=== PATIENT | male | born 1990 | race Hispanic/Latino ===

== ENCOUNTER 2018-03-11 10:09 | Emergency (ER) | payer SELFPAY ==
[2018-03-11] MEDS ORDERED: Lidocaine 1% w/Epinephrine 1:100K 20 ML VIAL ONE (11:07)
[2018-03-11] MEDS ORDERED: Bacitracin Zinc 1 Packet ONE (11:21)
[2018-03-11] MEDS ORDERED: Adacel (T-DAP) 0.5 ML VIAL ONE (11:30)
== END 2018-03-11 12:01 | disposition home or self-care (01) ==
LOC: ERS 10:09
DX: S61.511A Laceration without foreign body of right wrist, initial encounter (principal); F17.210 Nicotine dependence, cigarettes, uncomplicated; W25.XXXA Contact with sharp glass, initial encounter
CPT/HCPCS: 12001; 90471; 90715; J2001